=== PATIENT | female | born 1995 | race Caucasian/White ===

== ENCOUNTER 2019-07-25 12:11 | Inpatient (IN) | payer OTHER ==
[~2019-07-25] VITALS: Ht 160 cm; Wt 37.2 kg
--- NOTE | 2019-07-25 13:06 | NUR ---
DR ROCK BS FOR EXAM. PT STATES SHE'S TRYING TO GET ADMITTED TO AN OUT OF STATE PROGRAM FOR EATING DISORDER (ANOREXIA/BULEMIA) AND HAD LABS DRAWN.
--- NOTE | 2019-07-25 13:10 | NUR ---
PT REPORT TO RUBY HERNDON IN PRE-OP.
[2019-07-25] MEDS ORDERED: POTASSIUM CHLORIDE PMX 100 ML IV ONE (13:30)
[2019-07-25] MEDS ORDERED: LORAZEPAM (13:45)
[2019-07-25 13:48] LABS: ALBUMIN 4.3 g/dL (3.4-5.0); CALCIUM 9.3 mg/dL (8.5-10.1); CHLORIDE 81 mmol/L (98-107); CREATININE 0.91 mg/dL (0.55-1.02)
[2019-07-25] MEDS ORDERED: POTASSIUM CHLORIDE 20 MEQ PACKET ONE (13:56)
--- NOTE | 2019-07-25 13:59 | NUR ---
POTASSIUM CHLORIDE ORDERS CONFIRMED W/ DR LAW. POTASSIUM DRIP TO BE ORDERED FROM PHARMACY
[2019-07-25] MEDS ORDERED: POTASSIUM CHLORIDE 10% 20 MEQ/15 ML UDC PO ONE (14:00)
--- NOTE | 2019-07-25 14:04 | NUR ---
APPLE SAUCE GIVEN TO PT.
[2019-07-25 14:10] LABS: ANION GAP 6 mmol/L (5-15)
--- NOTE | 2019-07-25 14:11 | NUR ---
SOPHIA FROM PHARMACY CALLED RE: POTASSIUM DRIP - STATES ORDERED CONCENTRATION CAN ONLY GO THROUGH CENTRAL LINE. WILL CONSULT ERP.
[2019-07-25] MEDS ORDERED: POTASSIUM CHLORIDE 20 MEQ in SODIUM CHLORIDE 0.9% 250 ML IV ONE (14:30)
[2019-07-25] MEDS ORDERED: SODIUM CHLORIDE FLUSH 10ML SYR IVF ONE (14:30)
--- NOTE | 2019-07-25 14:42 | NUR ---
CALLED PHARMACY RE: [facility] POTASSIUM ORDER. PER SOPHIA, POTASSIUM DRIP WILL BE SENT SOON.
[2019-07-25] MEDS ORDERED: MAGNESIUM SULFATE 1 GM in SODIUM CHLORIDE 0.9% 50 ML IV ONE (15:00)
--- NOTE | 2019-07-25 15:34 | NUR ---
PT REPORT TO RUBY BARCLAY FOR ROOM 421. MAG SULFATE DRIP, NEEDS TO BE ORDERED FROM PHARMACY; TO BE STARTED AFTER PT'S ARRIVAL TO FLOOR.
--- NOTE | 2019-07-25 15:40 | NUR ---
PT TO HOLD IN ED UNTIL DR MART CAN ARRIVE FOR EVALUATION.
--- NOTE | 2019-07-25 16:15 | NUR ---
PT STILL WAITING FOR DR MART CONSULT. AMBULATORY TO [facility] W/OUT INCIDENT; GAIT STEADY.
--- NOTE | 2019-07-25 16:21 | NUR ---
CALLED PHARMACY FOR MAG SULFATE DRIP; WILL BE TUBED TO ED.
--- NOTE | 2019-07-25 16:23 | NUR ---
RETURNED TO ED ROOM W/OUT INCIDENT. VOIDED SPECIMEN PROVIDED.
--- NOTE | 2019-07-25 16:35 | NUR ---
MAG SULFATE DRIP STARTED; INFUSING AT 52ML/HR VIA PUMP; RT ARM IV SITE; IV SITE PATENT. POTASSIUM INFUSION CONTINUTING; INFUSING AT 130ML/HR VIA PUMP; LT ARM IV SITE; IV SITE PATENT. PT RESTING COMFORTABLY; AWAITING DR MART.
--- NOTE | 2019-07-25 16:40 | NUR ---
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
--- NOTE | 2019-07-25 16:46 | NUR ---
DR MART AT BS
--- NOTE | 2019-07-25 16:52 | NUR ---
URINE SPECIMEN TUBED TO LAB - AWAITING ORDER FROM DR MART.
--- NOTE | 2019-07-25 16:52 | NUR ---
PT REPORT TO BREAK RN.
[2019-07-25] MEDS ORDERED: CALCIUM GLUCONATE 4.6 MEQ/10 ML IVPush ONE (17:00)
[2019-07-25 17:13] LABS: BASOPHILS # (AUTO) 0.04 x10^3/uL (0-0.1); BASOPHILS % (AUTO) 1 % (0-1); EOSINOPHILS # (AUTO) 0.02 x10^3/uL (0-0.4); EOSINOPHILS % (AUTO) 0 % (1-7); LYMPHOCYTES # (AUTO) 2.87 x10^3/uL (1-3.4); LYMPHOCYTES % (AUTO) 52 % (22-44); MD NO; MEAN CORPUSCULAR HEMOGLOBIN 30.1 pg (27.0-34.8); MEAN CORPUSCULAR HGB CONC 33.8 g/dL (32.4-35.8); MEAN CORPUSCULAR VOLUME 89.3 fL (80-100); MONOCYTES # (AUTO) 0.26 x10^3/uL (0.2-0.8); MONOCYTES % (AUTO) 5 % (2-9); NEUTROPHILS # (AUTO) 2.37 x10^3/uL (1.8-6.8); NEUTROPHILS % (AUTO) 43 % (42-75); PLATELET COUNT 302 x10^3/uL (130-400); RED BLOOD COUNT 4.42 x10^6/uL (3.82-5.3); RED CELL DISTRIBUTION WIDTH 13.8 % (9.6-15.2)
[2019-07-25 17:21] LABS: ALANINE AMINOTRANSFERASE 20 U/L (12-78); ALBUMIN 3.7 g/dL (3.4-5.0); ANION GAP 7 mmol/L (5-15); CALCIUM 8.5 mg/dL (8.5-10.1); CHLORIDE 85 mmol/L (98-107); CREATININE 0.77 mg/dL (0.55-1.02)
[2019-07-25 17:24] LABS: ALKALINE PHOSPHATASE 51 U/L (45-117); BILIRUBIN,TOTAL 0.4 mg/dL (0.2-1.0); TOTAL PROTEIN 6.5 g/dL (6.4-8.2)
--- NOTE | 2019-07-25 17:43 | NUR ---
NEW POTASSIUM LEVEL (2.2) REPORTED TO DR MART
[2019-07-25] MEDS ORDERED: MIRT45TA57 PO (18:10)
[2019-07-25 18:32] VITALS: BP 100/66
[2019-07-25] MEDS ORDERED: NS + 40MEQ KCL 1,000 ML IV SCH (19:30)
[2019-07-25] MEDS ORDERED: SIMETHICONE 80 MG CHEW TAB ONE (20:23)
[2019-07-25] MEDS: SIMETHICONE 80 MG CHEW TAB PO PRN (20:25)
[2019-07-25] MEDS: POTASSIUM CHLORIDE 10% 40 MEQ/30 ML UDC PO SCH (20:25)
[2019-07-25] MEDS ORDERED: MIRTAZAPINE 15 MG TAB.RAPDIS PO SCH (21:00)
[2019-07-25] MEDS ORDERED: POTASSIUM CHLORIDE 20 MEQ TAB.ER.PRT PO SCH (21:00)
[2019-07-25 22:27] LABS: ANION GAP 5 mmol/L (5-15); CALCIUM 9.4 mg/dL (8.5-10.1); CHLORIDE 90 mmol/L (98-107); CREATININE 0.73 mg/dL (0.55-1.02)
[2019-07-26 02:06] VITALS: BP 83/46
[2019-07-26] MEDS: POTASSIUM CHLORIDE 10% 40 MEQ/30 ML UDC PO SCH ×2 (02:12→09:07)
[2019-07-26 02:20] VITALS: BP 97/58
[2019-07-26 05:49] LABS: MEAN CORPUSCULAR HEMOGLOBIN 29.8 pg (27.0-34.8); MEAN CORPUSCULAR HGB CONC 33.4 g/dL (32.4-35.8); MEAN CORPUSCULAR VOLUME 89.1 fL (80-100); MEAN PLATELET VOLUME 8.2 fL (7.4-10.4); PLATELET COUNT 273 x10^3/uL (130-400); RED BLOOD COUNT 4.33 x10^6/uL (3.82-5.3); RED CELL DISTRIBUTION WIDTH 13.9 % (9.6-15.2)
[2019-07-26 05:50] LABS: ALANINE AMINOTRANSFERASE 20 U/L (12-78); ALBUMIN 3.2 g/dL (3.4-5.0); ANION GAP 5 mmol/L (5-15); CALCIUM 8.6 mg/dL (8.5-10.1); CHLORIDE 103 mmol/L (98-107); CREATININE 0.73 mg/dL (0.55-1.02)
[2019-07-26 05:52] LABS: ALKALINE PHOSPHATASE 45 U/L (45-117); BILIRUBIN,TOTAL 0.4 mg/dL (0.2-1.0)
[2019-07-26 06:25] LABS: BASOPHILS # (AUTO) 0.04 x10^3/uL (0-0.1); BASOPHILS % (AUTO) 1 % (0-1); EOSINOPHILS # (AUTO) 0.07 x10^3/uL (0-0.4); EOSINOPHILS % (AUTO) 2 % (1-7); LYMPHOCYTES # (AUTO) 2.35 x10^3/uL (1-3.4); LYMPHOCYTES % (AUTO) 62 % (22-44); MD SCAN; MONOCYTES # (AUTO) 0.25 x10^3/uL (0.2-0.8); MONOCYTES % (AUTO) 7 % (2-9); NEUTROPHILS % (AUTO) 29 % (42-75)
[2019-07-26 06:58] VITALS: BP 86/50
[2019-07-26] MEDS: SIMETHICONE 80 MG CHEW TAB PO PRN (11:05)
== END 2019-07-26 12:21 | disposition home or self-care (01) | DRG 641 ==
LOC: ED 14:33 → EDIP 14:34 → ED 14:38 → 4WST 17:48 → DCLOUNGE 07-26 12:17
PROVIDERS: ADMIT Internal Medicine; ATTEND Hospitalist
DX: E87.6 Hypokalemia (principal); F50.00 Anorexia nervosa, unspecified; Z68.1 Body mass index [BMI] 19.9 or less, adult; E87.1 Hypo-osmolality and hyponatremia; E83.51 Hypocalcemia; R94.31 Abnormal electrocardiogram [ECG] [EKG]
CPT/HCPCS: 36415; 71045; 80048; 80053; 82040; 82330; 83735; 84100; 84703; 85025; 93005; G0378; J3475; J3480; J0610; J7050